=== PATIENT | female | born 1965 | race Caucasian/White ===

== ENCOUNTER 2016-11-25 13:43 | Emergency (ER) | payer BC, MEDICARE ==
[~2016-11-25] VITALS: Ht 154.9 cm; Wt 80.9 kg
[~2016-11-25 13:43] MED LIST: ALLOPURINOL100 MG PO; CYMBALTA 60MG60 MG PO; DURADRIN; ELAVIL10 MG PO; ERYTHROCIN STE250 M1 PO; IMITREX25 MG PO; METHADONE H10 MG/TAB PO; METHYLPREDNISOLONE; MOBIC; NEURONTIN600 MG PO; PERCOCET 5/321 UDTAB PO; ROXICODONE 55 MG/TAB PO; SINGULAIR10 MG PO; VICODIN 5/5001 UDTAB PO; ZYRTEC 10MG; ZYRTEC 10MG10 MG
[2016-11-25 13:47] VITALS: TEMP 99.3
[2016-11-25 14:53] LABS: PH 7 (5-8); SQUAMOUS EPITHELIAL 0-2 /hpf; URINE APPEARANCE Hazy; URINE BACTERIA None Seen /hpf; URINE BILIRUBIN Negative (NEGATIVE); URINE BLOOD Negative (NEGATIVE); URINE COLOR Yellow; URINE GLUCOSE Negative (NEGATIVE); URINE KETONE Negative (NEGATIVE); URINE RBC 0-2 /hpf; URINE WBC 0-2 /hpf
[2016-11-25 14:55] LABS: BASO # 0.1 (0.0-0.2); EOS # 0.1 (0.0-0.7); EOS % 2.7 % (0-4.0); GRAN # 3.3 (1.4-6.5); GRAN % 64.9 % (42.2-75.2); LYMPH # 1.2 (1.2-3.4); LYMPH % 23.6 % (20.0-51.0); MEAN CELL VOLUME 81 fl (80.0-100.0); MEAN CORPUSCULAR HGB CONC 31 g/dl (33.0-37.0); MEAN PLATELET VOLUME 9.6 fl (7.4-10.4); MONO # 0.4 (0.1-0.6); MONO % 7.6 % (1.7-9.3); PLATELET COUNT 331 K/mm3 (130-400); REDCELL DISTRIBUTION WIDTH-CV 15.2 % (11.5-14.5); WHITE BLOOD COUNT 5.1 K/mm3 (4.8-10.8)
[2016-11-25 14:57] LABS: HEMATOCRIT 27.4 % (37.0-47.0); HEMOGLOBIN 8.5 g/dl (12.5-16.0); MEAN CORPUSCULAR HEMOGLOBIN 25 pg (27.0-31.0)
[2016-11-25 15:03] LABS: ADJUSTED CALCIUM 8.9 mg/dL (8.4-10.2); ALBUMIN 3.7 gm/dL (3.5-5.0); BILIRUBIN,TOTAL 0.6 mg/dL (0.0-1.0); C-REACTIVE PROTEIN 1.3 mg/dL (0.0-0.9); CALCIUM 8.7 mg/dL (8.4-10.2); CREATININE, serum 0.82 mg/dL (0.52-1.25); POTASSIUM 4.3 mmol/L (3.4-5.0); TOTAL PROTEIN 6.8 gm/dL (6.4-8.2)
[2016-11-25] MEDS ORDERED: PREDNISONE20 MG PO (15:22)
[2016-11-25 15:25] VITALS: BP 119/62; PULSE 82
== END 2016-11-25 15:31 | disposition home or self-care (01) ==
LOC: COL.ER 13:43
PROVIDERS: Emergency Medicine
DX: T78.40XA Allergy, unspecified, initial encounter (principal); D64.9 Anemia, unspecified; R22.0 Localized swelling, mass and lump, head
CPT/HCPCS: J7512

== ENCOUNTER 2021-07-05 15:42 | Outpatient (RCR) | payer BC, MEDICARE ==
[2021-07-05] VITALS (9 sets, daily range): BP systolic 94–116; BP diastolic 45–81; PULSE 52–99; TEMP 97.4–98.5
[~2021-07-05] VITALS: Ht 154.9 cm; Wt 88.1 kg
[~2021-07-05 15:42] MED LIST changes: +PREDNISONE20 MG PO
[2021-07-05] MEDS ORDERED: NAPROSYN500 MG PO (19:28)
[2021-07-05 19:39] LABS: HEMATOCRIT 23.2 % (37.0-47.0); HEMOGLOBIN 7.2 g/dl (12.5-16.0)
[2021-07-05 20:28] LABS: HEMATOCRIT 22.5 % (37.0-47.0); HEMOGLOBIN 6.9 g/dl (12.5-16.0)
[2021-07-05 23:35] LABS: HEMATOCRIT 24.7 % (37.0-47.0)
--- NOTE | 2021-07-05 23:40 | NUR ---
Per Dr. Vasquez enamorado to discharge. Have patient follow up with PCP in AM
--- NOTE | 2021-07-06 00:03 | NUR ---
Patient taken via wheelchair to vehicle. Patient had mild dizziness due to standing to quickly. VS stable. House supervisior in room. Patient educated if dizziness continues or if become short of air, bleeding, or clammy to return to ED. Patient educated to follow up with PCP in AM. Voiced understanding.
== END 2021-07-05 23:56 | disposition home or self-care (01) ==
LOC: EUO 15:42
PROVIDERS: Family Medicine
DX: D64.9 Anemia, unspecified (principal)
CPT/HCPCS: J7050; P9016

== ENCOUNTER 2021-07-07 13:26 | Observation (INO) | payer BC, MEDICARE ==
[~2021-07-07] VITALS: Ht 154.9 cm; Wt 81.8 kg
[~2021-07-07 13:26] MED LIST changes: +NAPROSYN500 MG PO
[2021-07-07 14:33] LABS: BASO % 0.7 % (0.0-2.0); EOS # 0.1 (0.0-0.7); EOS % 1.9 % (0-4.0); GRAN # 4.4 (1.4-6.5); GRAN % 73.4 % (42.2-75.2); LYMPH # 0.9 (1.2-3.4); LYMPH % 15.4 % (20.0-51.0); MEAN CELL VOLUME 97 fl (80.0-100.0); MEAN CORPUSCULAR HGB CONC 32 g/dl (33.0-37.0); MEAN PLATELET VOLUME 9.4 fl (7.4-10.4); MONO # 0.5 (0.1-0.6); MONO % 8.1 % (1.7-9.3); PLATELET COUNT 337 K/mm3 (130-400); RED BLOOD COUNT 2.83 M/mm3 (4.10-5.30); REDCELL DISTRIBUTION WIDTH-CV 15.8 % (11.5-14.5)
[2021-07-07 14:43] LABS: ALANINE AMINOTRANSFERASE 15 U/L (4-34); ALBUMIN 2.9 gm/dL (3.5-5.0); ALKALINE PHOSPHATASE 84 U/L (50-136); ANION GAP 5 mmol/L (7-16); AST,SGOT 23 U/L (15-37); BILIRUBIN,TOTAL 0.3 mg/dL (0.0-1.0); BLOOD UREA NITROGEN 10 mg/dL (7-17); CARBON DIOXIDE 29 mmol/L (22-30); CHLORIDE 104 mmol/L (98-107); CREATININE, serum 0.72 (0.52-1.25); GLUCOSE 111 mg/dL (74-106); POTASSIUM 3.8 mmol/L (3.4-5.0); SODIUM 138 mmol/L (137-145); TOTAL PROTEIN 5.4 gm/dL (6.4-8.2)
[2021-07-07 14:46] LABS: HEMATOCRIT 27.4 % (37.0-47.0); HEMOGLOBIN 8.8 g/dl (12.5-16.0); MEAN CORPUSCULAR HEMOGLOBIN 31 pg (27.0-31.0)
[2021-07-07 14:47] LABS: INR 1.1 (0.8-3.0); PROTHROMBIN TIME 11.7 SECONDS (9.7-12.8)
[2021-07-07 14:48] LABS: LIPASE < 10 U/L (23-300)
[2021-07-07 15:03] LABS: TROPONIN-I < 0.012 ng/mL (0.000-0.035)
[2021-07-07] MEDS ORDERED: TOPROL XL 50MG50 MG PO (16:23)
[2021-07-07] MEDS ORDERED: SYNTHROID0.125 MG/T PO (16:23)
[2021-07-07] MEDS ORDERED: XYZAL5 MG PO ×2 (16:23→19:48)
[2021-07-07] MEDS ORDERED: ELAVIL100 MG PO (16:23)
[2021-07-07] MEDS ORDERED: ZYLOPRIM 100MG100 MG PO (16:23)
[2021-07-07] MEDS ORDERED: ASPIRIN E.C. 8181 MG PO (16:25)
[2021-07-07] MEDS ORDERED: PLAVIX 75MG TAB75 MG PO (16:25)
[2021-07-07] MEDS ORDERED: EMGALITY120 MG/1 M SQ (16:25)
[2021-07-07] MEDS ORDERED: NEURONTIN600 MG/TAB PO (16:26)
[2021-07-07] MEDS ORDERED: NAPROSYN500 MG PO (16:26)
[2021-07-07] MEDS ORDERED: PLETAL50 MG PO (16:26)
[2021-07-07] MEDS ORDERED: VITAMIND3 5000 PO (19:50)
[2021-07-07] MEDS ORDERED: CYMBALTA 60MG60 MG PO (19:51)
[2021-07-07 20:21] VITALS: BP 120/61; PULSE 66; TEMP 98.4
[2021-07-08] VITALS (7 sets, daily range): BP systolic 107–139; BP diastolic 63–98; PULSE 69–83; TEMP 97.9–98.8
[2021-07-08 07:48] LABS: MEAN CELL VOLUME 97 fl (80.0-100.0); MEAN CORPUSCULAR HGB CONC 31 g/dl (33.0-37.0); MEAN PLATELET VOLUME 9.6 fl (7.4-10.4); PLATELET COUNT 333 K/mm3 (130-400); RED BLOOD COUNT 2.66 M/mm3 (4.10-5.30)
[2021-07-08 07:50] LABS: HEMATOCRIT 25.8 % (37.0-47.0); MEAN CORPUSCULAR HEMOGLOBIN 30 pg (27.0-31.0)
--- NOTE | 2021-07-08 08:00 | NUR ---
Patient back to room from EGD by girma, patient ambulated to bed with SBA and steady gait. Patient denies pain at this time. Family at bedside. Post op VSS and post of fluids infusing per orders. Denies needs at this time.
[2021-07-08 08:02] LABS: CALCIUM 7.6 mg/dL (8.4-10.2); CREATININE, serum 0.74 (0.52-1.25); POTASSIUM 3.6 mmol/L (3.4-5.0)
[2021-07-08] MEDS ORDERED: PROTONIX 40MG T40 MG PO (09:59)
--- NOTE | 2021-07-08 11:25 | NUR ---
Discharge education provided to patient and spouse. All questions answered. Educated on when to call provider and patient will call to schedule follow up with PCP. Educated on new medication. Denies furhter needs at this time. INT to right forarm discontined; catheter tip intact.
--- NOTE | 2021-07-08 11:45 | NUR ---
Patient out by wheelchair with surgical staff and family
== END 2021-07-08 11:45 | disposition home or self-care (01) ==
LOC: COL.ER 13:26 → SURG 15:31
PROVIDERS: Emergency Medicine; Physician Assistant; ADMIT Student in an Organized Health Care Education/Training Program
DX: K92.1 Melena (principal); D50.0 Iron deficiency anemia secondary to blood loss (chronic); K31.4 Gastric diverticulum; K21.9 Gastro-esophageal reflux disease without esophagitis; G62.9 Polyneuropathy, unspecified; M10.9 Gout, unspecified; I73.9 Peripheral vascular disease, unspecified; I26.99 Other pulmonary embolism without acute cor pulmonale; K52.9 Noninfective gastroenteritis and colitis, unspecified; E03.9 Hypothyroidism, unspecified; F17.210 Nicotine dependence, cigarettes, uncomplicated; Z90.49 Acquired absence of other specified parts of digestive tract; Z79.02 Long term (current) use of antithrombotics/antiplatelets; Z79.890 Hormone replacement therapy; Z98.84 Bariatric surgery status
CPT/HCPCS: 99239; C9113; G0378; J0696; J2704; J7030; Q9967

== ENCOUNTER 2022-08-08 19:11 | Emergency (ER) | payer MEDICARE, BC ==
[~2022-08-08] VITALS: Ht 154.9 cm; Wt 57.3 kg
[~2022-08-08 19:11] MED LIST changes: +ASPIRIN E.C. 8181 MG PO; +ELAVIL100 MG PO; +EMGALITY120 MG/1 M SQ; +NEURONTIN600 MG/TAB PO; +PLAVIX 75MG TAB75 MG PO; +PLETAL50 MG PO; +PROTONIX 40MG T40 MG PO; +SYNTHROID0.125 MG/T PO; +TOPROL XL 50MG50 MG PO; +VITAMIND3 5000 PO; +XYZAL5 MG PO; +ZYLOPRIM 100MG100 MG PO
[2022-08-08 20:31] VITALS: BP 96/63; PULSE 83; TEMP 98.4
== END 2022-08-08 20:31 | disposition home or self-care (01) ==
LOC: COL.ER 19:11
DX: K94.20 Gastrostomy complication, unspecified (principal); Z90.49 Acquired absence of other specified parts of digestive tract

== ENCOUNTER 2022-08-17 16:50 | Emergency (ER) | payer MEDICARE, BC ==
[~2022-08-17] VITALS: Ht 154.9 cm; Wt 57.3 kg
[2022-08-17 17:02] VITALS: BP 102/70; TEMP 97.7
[2022-08-17 18:35] VITALS: PULSE 88
== END 2022-08-17 18:36 | disposition home or self-care (01) ==
LOC: COL.ER 16:50
DX: K94.13 Enterostomy malfunction (principal)